=== PATIENT | male | born 1985 | race Caucasian/White ===

== ENCOUNTER 2024-01-03 13:28 | Emergency (ER) | payer OTHER, SELFPAY ==
[2024-01-03 14:02] VITALS: PULSE 129; RESP 18; TEMP 36.3; O2SAT 98
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
== END 2024-01-03 14:11 ==
LOC: CHSED 14:00
PROVIDERS: Emergency Provider Emergency Medicine
DX: Z04.1 Encounter for examination and observation following transport accident (principal)
CPT/HCPCS: 99199